=== PATIENT | male | born 1945 | race Caucasian/White ===

== ENCOUNTER 2019-12-13 17:32 | Inpatient (IN) | payer OTHER ==
[~2019-12-13] VITALS: Ht 188 cm; Wt 88.5 kg
[2019-12-13] MEDS ORDERED: FAMOTIDINE 20 MG TABLET ONE (19:15)
[2019-12-13] MEDS ORDERED: MAG HYDROX/AL HYDROX/SIMETH 30 ML LIQUID UDC ONE (19:15)
[2019-12-13] MEDS ORDERED: FAMOTIDINE 20 MG TABLET PO ONE (19:15)
[2019-12-13] MEDS ORDERED: MAG HYDROX/AL HYDROX/SIMETH 30 ML LIQUID UDC PO ONE (19:15)
[2019-12-13] MEDS ORDERED: TEMAZEPAM 7.5 MG CAPSULE PO PRN (20:45)
[2019-12-13] MEDS ORDERED: MAGNESIUM HYDROXIDE 30 ML LIQUID UDC PO PRN (20:45)
[2019-12-13] MEDS ORDERED: MAG HYDROX/AL HYDROX/SIMETH 30 ML LIQUID UDC PO PRN (20:45)
[2019-12-13 21:18] VITALS: BP 113/83
[2019-12-13] MEDS: SIMVASTATIN 10 MG TABLET PO SCH (21:44)
[2019-12-13] MEDS: LORAZEPAM 1 MG TABLET PO PRN (22:09)
[2019-12-14] MEDS: PANTOPRAZOLE SODIUM 40 MG TABLET.DR PO SCH (07:01)
[2019-12-14] MEDS: LEVOTHYROXINE SODIUM 50 MCG TABLET PO SCH (07:02)
[2019-12-14 07:30] VITALS: BP 146/93
[2019-12-14 07:57] LABS: BASOPHILS % (AUTO) 0.4 % (0.0-2.0); EOSINOPHILS # (AUTO) 0.8 K/uL (0.0-0.7); EOSINOPHILS % (AUTO) 9.4 % (0.0-7.0); HEMATOCRIT 47.4 % (36.7-47.1); HEMOGLOBIN 15.9 g/dL (12.5-16.3); LYMPHOCYTES % (AUTO) 35.7 % (20.5-51.5); MEAN CORPUSCULAR HEMOGLOBIN 30.3 uug (23.8-33.4); MEAN CORPUSCULAR HGB CONC 34 g/dL (32.5-36.3); MEAN CORPUSCULAR VOLUME 90.1 fL (73.0-96.2); MONOCYTES # (AUTO) 0.6 K/uL (2.0-10.0); MONOCYTES % (AUTO) 6.6 % (0.0-11.0); NEUTROPHILS # (AUTO) 4.1 K/uL (1.8-8.9); NEUTROPHILS % (AUTO) 47.9 % (38.5-71.5); PLATELET COUNT (AUTO) 336 K/uL (152-348); RED BLOOD CELL COUNT(AUTO) 5.26 MIL/uL (4.06-5.63); WHITE BLOOD COUNT (AUTO) 8.4 K/uL (3.6-10.2)
[2019-12-14 08:16] LABS: ALANINE AMINOTRANSFERASE 91 U/L (16-63); ALKALINE PHOSPHATASE 86 U/L (50-136); ASPARTATE AMINOTRANSFERASE 86 U/L (15-37); BILIRUBIN,TOTAL 0.8 mg/dL (0.2-1.0); CARBON DIOXIDE 28 mmol/L (21-32); CHLORIDE 99 mmol/L (98-107); CHOLESTEROL 185 mg/dL (<200); CREATININE 1.4 mg/dL (0.6-1.3); GLUCOSE 138 mg/dL (74-106); GLUCOSE FASTING 138 mg/dL (70-115); HDL CHOLESTEROL 39 mg/dL (40-60); PHOSPHOROUS 3.1 mg/dL (2.5-4.9); POTASSIUM 4.4 mmol/L (3.5-5.1); TOTAL PROTEIN, SERUM 7.9 g/dL (6.4-8.2); TRIGLYCERIDES 334 MG/DL (30-150); UREA NITROGEN, BLOOD 20 mg/dL (7-18)
[2019-12-14 08:26] LABS: THYROID STIMULATING HORMONE 7.264 mIU/mL (0.358-3.740)
[2019-12-14] MEDS ORDERED: Medication Not On Formulary EA (Omeprazole 20 MG) PO SCH (09:00)
[2019-12-14] MEDS: ATENOLOL 25 MG TABLET PO SCH (09:02)
[2019-12-14] MEDS: METFORMIN HCL 850 MG TABLET PO SCH ×2 (09:03→17:06)
[2019-12-14] MEDS: LORAZEPAM 1 MG TABLET PO PRN ×2 (09:12→13:32)
[2019-12-14] MEDS: ACETAMINOPHEN 325 MG TABLET PO PRN ×2 (09:53→17:06)
[2019-12-14] MEDS ORDERED: GUAIFENESIN/DEXTROMETHORPHAN 5 ML UDC PO PRN (10:45)
[2019-12-14 15:35] VITALS: BP 127/67
[2019-12-14] MEDS: risperiDONE 1 MG/ML UDC PO SCH (17:06)
[2019-12-14 20:00] VITALS: BP 111/70
[2019-12-14] MEDS: QUETIAPINE FUMARATE 25 MG TABLET PO SCH (20:30)
[2019-12-14] MEDS: SIMVASTATIN 10 MG TABLET PO SCH (20:31)
[2019-12-15] MEDS: PANTOPRAZOLE SODIUM 40 MG TABLET.DR PO SCH (06:41)
[2019-12-15] MEDS: LEVOTHYROXINE SODIUM 50 MCG TABLET PO SCH (06:42)
[2019-12-15 06:45] LABS: BASOPHILS # (AUTO) 0.1 K/uL (0.0-8.0); BASOPHILS % (AUTO) 1.4 % (0.0-2.0); EOSINOPHILS # (AUTO) 0.8 K/uL (0.0-0.7); HEMATOCRIT 44.6 % (36.7-47.1); HEMOGLOBIN 15.1 g/dL (12.5-16.3); MEAN CORPUSCULAR HEMOGLOBIN 30.2 uug (23.8-33.4); MEAN CORPUSCULAR HGB CONC 34 g/dL (32.5-36.3); MEAN CORPUSCULAR VOLUME 89.2 fL (73.0-96.2); MONOCYTES # (AUTO) 0.6 K/uL (2.0-10.0); MONOCYTES % (AUTO) 6.8 % (0.0-11.0); NEUTROPHILS # (AUTO) 3.7 K/uL (1.8-8.9); NEUTROPHILS % (AUTO) 44.8 % (38.5-71.5); PLATELET COUNT (AUTO) 319 K/uL (152-348); WHITE BLOOD COUNT (AUTO) 8.2 K/uL (3.6-10.2)
[2019-12-15 06:52] LABS: ALANINE AMINOTRANSFERASE 88 U/L (16-63); ALKALINE PHOSPHATASE 67 U/L (50-136); ASPARTATE AMINOTRANSFERASE 68 U/L (15-37); BILIRUBIN,TOTAL 0.6 mg/dL (0.2-1.0); CARBON DIOXIDE 26 mmol/L (21-32); CHLORIDE 102 mmol/L (98-107); CREATINE KINASE, TOTAL 140 U/L (39-308); CREATININE 1.4 mg/dL (0.6-1.3); GLUCOSE 144 mg/dL (74-106); MAGNESIUM 2.3 mg/dL (1.8-2.4); PHOSPHOROUS 3.7 mg/dL (2.5-4.9); POTASSIUM 4.7 mmol/L (3.5-5.1); TOTAL PROTEIN, SERUM 7.2 g/dL (6.4-8.2); UREA NITROGEN, BLOOD 24 mg/dL (7-18)
[2019-12-15 07:30] VITALS: BP 141/70
[2019-12-15 08:46] LABS: *CREATININE,URINE 65.3 mg/dL (30-125); *URINE TOTAL PROTEIN RANDOM < 6.0 mg/dL (<150/24HR)
[2019-12-15 08:48] LABS: *BILIRUBIN,URIN NEGATIVE (NEGATIVE); *BLOOD, URINE NEGATIVE (NEGATIVE); *CLARITY,URINE CLEAR (CLEAR); *COLOR,URINE YELLOW (YELLOW); *KETONES,URINE NEGATIVE (NEGATIVE); *UROBILINOGEN,URINE 0.2 E.U./dl (NORMAL); LEUKOCYTE ESTERASE ,URINE NEGATIVE (NEGATIVE); NITRITE, URINE NEGATIVE (NEGATIVE); UGLUCOSE NEGATIVE (NEGATIVE)
[2019-12-15] MEDS: risperiDONE 1 MG/ML UDC PO SCH ×2 (09:08→17:01)
[2019-12-15] MEDS: METFORMIN HCL 850 MG TABLET PO SCH ×2 (09:08→17:01)
[2019-12-15] MEDS: ATENOLOL 25 MG TABLET PO SCH (09:09)
[2019-12-15] MEDS: ACETAMINOPHEN 325 MG TABLET PO PRN (10:12)
[2019-12-15] MEDS: LORAZEPAM 1 MG TABLET PO PRN (10:12)
[2019-12-15 16:00] VITALS: BP 142/73
[2019-12-15 20:00] VITALS: BP 128/71
[2019-12-15] MEDS: SIMVASTATIN 10 MG TABLET PO SCH (20:31)
[2019-12-15] MEDS: QUETIAPINE FUMARATE 25 MG TABLET PO SCH (20:31)
[2019-12-16] MEDS: PANTOPRAZOLE SODIUM 40 MG TABLET.DR PO SCH (06:17)
[2019-12-16] MEDS: LEVOTHYROXINE SODIUM 50 MCG TABLET PO SCH (06:17)
[2019-12-16 07:30] VITALS: BP 124/54
[2019-12-16] MEDS: METFORMIN HCL 850 MG TABLET PO SCH ×2 (09:09→17:30)
[2019-12-16] MEDS: ATENOLOL 25 MG TABLET PO SCH (09:10)
[2019-12-16] MEDS: risperiDONE 1 MG/ML UDC PO SCH ×2 (09:10→17:30)
[2019-12-16] MEDS ORDERED: GUAIFENESIN/DEXTROMETHORPHAN 5 ML UDC PO PRN (11:30)
[2019-12-16 15:50] VITALS: BP 106/66
[2019-12-16] MEDS: ACETAMINOPHEN 325 MG TABLET PO PRN (19:39)
[2019-12-16 20:00] VITALS: BP 123/74
[2019-12-16] MEDS: SIMVASTATIN 10 MG TABLET PO SCH (20:25)
[2019-12-16] MEDS: QUETIAPINE FUMARATE 25 MG TABLET PO SCH (20:25)
[2019-12-17] MEDS: PANTOPRAZOLE SODIUM 40 MG TABLET.DR PO SCH (06:06)
[2019-12-17] MEDS: LEVOTHYROXINE SODIUM 50 MCG TABLET PO SCH (06:06)
[2019-12-17] MEDS: METFORMIN HCL 850 MG TABLET PO SCH ×2 (08:27→17:09)
[2019-12-17] MEDS: risperiDONE 1 MG/ML UDC PO SCH ×2 (08:28→16:32)
[2019-12-17] MEDS: ATENOLOL 25 MG TABLET PO SCH (08:28)
[2019-12-17 08:29] VITALS: BP 125/72
[2019-12-17 10:08] LABS: A/G RATIO 1.1 (0.7-1.7); ALBUMIN 3.4 g/dL (2.9-4.4); ALPHA-1-GLOBULIN 0.2 g/dL (0.0-0.4); BETA GLOBULIN 1.1 g/dL (0.7-1.3); GAMMA GLOBULIN 0.7 g/dL (0.4-1.8); GLOBULIN, TOTAL 3.1 g/dL (2.2-3.9); M-SPIKE Not Observed g/dL (Not Observed)
[2019-12-17 16:09] VITALS: BP 112/68
[2019-12-17 20:00] VITALS: BP 118/72
[2019-12-17] MEDS: QUETIAPINE FUMARATE 25 MG TABLET PO SCH (20:30)
[2019-12-17] MEDS: SIMVASTATIN 10 MG TABLET PO SCH (20:30)
[2019-12-18] MEDS: LEVOTHYROXINE SODIUM 50 MCG TABLET PO SCH (06:22)
[2019-12-18] MEDS: PANTOPRAZOLE SODIUM 40 MG TABLET.DR PO SCH (06:22)
[2019-12-18 07:30] VITALS: BP 112/66
[2019-12-18] MEDS: risperiDONE 1 MG/ML UDC PO SCH (08:59)
[2019-12-18 09:00] VITALS: BP 112/66
[2019-12-18] MEDS: ATENOLOL 25 MG TABLET PO SCH (09:00)
[2019-12-18] MEDS: METFORMIN HCL 850 MG TABLET PO SCH (09:00)
== END 2019-12-18 12:25 | disposition home or self-care (01) | DRG 885 ==
LOC: ER 17:44 → GPS 19:46
PROVIDERS: ADMIT Psychiatry & Neurology Psychosomatic Medicine; ATTEND Registered Nurse
DX: F25.9 Schizoaffective disorder, unspecified (principal); N17.0 Acute kidney failure with tubular necrosis; N18.9 Chronic kidney disease, unspecified; F31.9 Bipolar disorder, unspecified; K21.9 Gastro-esophageal reflux disease without esophagitis; F12.21 Cannabis dependence, in remission; F10.21 Alcohol dependence, in remission; G31.84 Mild cognitive impairment of uncertain or unknown etiology; I12.9 Hypertensive chronic kidney disease with stage 1 through stage 4 chronic kidney disease, or unspecified chronic kidney disease; E11.22 Type 2 diabetes mellitus with diabetic chronic kidney disease; E78.5 Hyperlipidemia, unspecified; Z91.14 Patient's other noncompliance with medication regimen; Z79.899 Other long term (current) drug therapy; Z79.890 Hormone replacement therapy; F43.10 Post-traumatic stress disorder, unspecified; E11.9 Type 2 diabetes mellitus without complications; F29 Unspecified psychosis not due to a substance or known physiological condition; Z73.6 Limitation of activities due to disability; E03.9 Hypothyroidism, unspecified; R74.0 Nonspecific elevation of levels of transaminase and lactic acid dehydrogenase [LDH]
CPT/HCPCS: 36415; 71045; 83735; 83970; 84100; 84155; 84156; 84165; 84300; 84443; 84481; 85025; A4663

== ENCOUNTER 2020-02-20 11:05 | Emergency (ER) | payer OTHER ==
[~2020-02-20] VITALS: Ht 188 cm; Wt 87.1 kg
[~2020-02-20 11:05] MED LIST: ATEN-170 PO; BENZ1TAB7 PO; ENOX40DI SQ; LEVO50TA8 PO; METF-441 PO; OMEGA; OMEP20CA15 PO; SALMON OIL; SIMV10TA98 PO
--- NOTE | 2020-02-20 11:32 | NUR ---
Patient ambulated with stable gait. A/Ox4. Speech is clear, speaks in complete sentences. No acute neuro deficits noted. Patient BIB for c/o bipolar disorder and fatigue for 2 weeks. No respiratory distress noted. No cardiovascular distress noted, all pulses palpable. Denies any n/v/d. Patient does not pose a danger, no A/V hallucinations, or any SI/HI. Patient placed in a private room and will be closely monitored.
[2020-02-20 11:34] LABS: BASOPHILS % (AUTO) 0.2 % (0.0-2.0); EOSINOPHILS # (AUTO) 0.2 K/uL (0.0-0.7); EOSINOPHILS % (AUTO) 1.8 % (0.0-7.0); HEMATOCRIT 28.8 % (36.7-47.1); HEMOGLOBIN 9.8 g/dL (12.5-16.3); LYMPHOCYTES # (AUTO) 2.5 K/uL (20.0-40.0); LYMPHOCYTES % (AUTO) 23.1 % (20.5-51.5); MEAN CORPUSCULAR HEMOGLOBIN 30.3 uug (23.8-33.4); MEAN CORPUSCULAR HGB CONC 34 g/dL (32.5-36.3); MEAN CORPUSCULAR VOLUME 89.3 fL (73.0-96.2); MONOCYTES # (AUTO) 0.6 K/uL (2.0-10.0); MONOCYTES % (AUTO) 5.4 % (0.0-11.0); NEUTROPHILS # (AUTO) 7.6 K/uL (1.8-8.9); NEUTROPHILS % (AUTO) 69.5 % (38.5-71.5); PLATELET COUNT (AUTO) 446 K/uL (152-348); RED BLOOD CELL COUNT(AUTO) 3.23 MIL/uL (4.06-5.63)
[2020-02-20 11:42] LABS: CARBON DIOXIDE 23 mmol/L (21-32); CHLORIDE 97 mmol/L (98-107); CREATININE 1.2 mg/dL (0.6-1.3); GLUCOSE 94 mg/dL (74-106); POTASSIUM 4.2 mmol/L (3.5-5.1); UREA NITROGEN, BLOOD 11 mg/dL (7-18)
[2020-02-20 11:48] LABS: ALANINE AMINOTRANSFERASE 52 U/L (16-63); ALKALINE PHOSPHATASE 77 U/L (50-136); ASPARTATE AMINOTRANSFERASE 39 U/L (15-37); BILIRUBIN,DIRECT 0.2 mg/dL (0.0-0.2); BILIRUBIN,TOTAL 0.9 mg/dL (0.2-1.0); TOTAL PROTEIN, SERUM 6.3 g/dL (6.4-8.2)
[2020-02-20 11:49] LABS: ACETAMINOPHEN < 2.0 ug/mL (10-30); ETHANOL < 3 MG/DL (0-0)
[2020-02-20 11:50] LABS: *BILIRUBIN,URIN NEGATIVE (NEGATIVE); *BLOOD, URINE NEGATIVE (NEGATIVE); *CLARITY,URINE CLEAR (CLEAR); *COLOR,URINE YELLOW (YELLOW); *KETONES,URINE NEGATIVE (NEGATIVE); *UROBILINOGEN,URINE 0.2 E.U./dl (NORMAL); LEUKOCYTE ESTERASE ,URINE NEGATIVE (NEGATIVE); NITRITE, URINE NEGATIVE (NEGATIVE); UGLUCOSE NEGATIVE (NEGATIVE)
[2020-02-20] MEDS ORDERED: IV NS 1000 ML 1,000 ML IV ONE (12:00)
--- NOTE | 2020-02-20 12:00 | NUR ---
CALLED ROZ[facility] BABIN FOR PSYCH EVAL.
[2020-02-20 12:01] LABS: *AMPHETAMINE, URINE NEGATIVE (NEGATIVE); *BARBITURATE, URINE NEGATIVE (NEGATIVE); *CANNABINOID, URINE NEGATIVE (NEGATIVE); *COCCAINE, URINE NEGATIVE (NEGATIVE); *OPIATE, URINE NEGATIVE (NEGATIVE); *PHENCYCLIDINE SCREEN,URINE NEGATIVE (NEGATIVE)
--- NOTE | 2020-02-20 12:25 | NUR ---
Offered food and beverages for patient.
--- NOTE | 2020-02-20 12:57 | NUR ---
Art, [employer], at bedside for crisis team evaluation.
--- NOTE | 2020-02-20 14:20 | NUR ---
Patient discharged to home in stable condition. Written and verbal after care instructions given. Patient verbalizes understanding of instructions. Stressed follow up or return to ER for worsening s/s. Patient will be picked up by the friend, and is stable condition. Denies any A/V hallucinations, no HI/SI. Patient poses no threat to others or self.
[2020-02-20 14:22] VITALS: BP 115/73
== END 2020-02-20 14:23 | disposition home or self-care (01) ==
LOC: ER 11:05
DX: R00.1 Bradycardia, unspecified (principal); D72.829 Elevated white blood cell count, unspecified; D64.9 Anemia, unspecified; E87.1 Hypo-osmolality and hyponatremia; Z79.84 Long term (current) use of oral hypoglycemic drugs; R73.03 Prediabetes; E78.5 Hyperlipidemia, unspecified; K21.9 Gastro-esophageal reflux disease without esophagitis; Z79.899 Other long term (current) drug therapy; F17.210 Nicotine dependence, cigarettes, uncomplicated; Z91.5 Personal history of self-harm; F10.11 Alcohol abuse, in remission; F16.11 Hallucinogen abuse, in remission; Y90.0 Blood alcohol level of less than 20 mg/100 ml
CPT/HCPCS: 36415; 71045; 80048; 80076; 80307 ×2; 80329; 81001; 84443; 85025; 93005; 96360; 99285; 99406; G0480; A4663; J7030